=== PATIENT | female | born 1950 | race Caucasian/White ===

== ENCOUNTER 2022-04-29 20:23 | Emergency (ER) | payer MEDICARE, BC ==
[2022-04-29] MEDS ORDERED: MORPHINE SULFATE 4 MG INJ IM ONE (20:36)
[2022-04-29 20:41] VITALS: PULSE 68; O2SAT 96
[2022-04-29] MEDS ORDERED: MORPHINE SULFATE 4 MG INJ ONE (20:42)
--- NOTE | 2022-04-29 21:07 | ERPHSYRPT ---
- History of Present Illness Time Seen by Provider: 04/29/22 20:28 Source: patient Exam Limitations: no limitations Patient Subjective Stated Complaint: pt states "I was walking in the yard and fell in a hole. I heard it pop." Triage Nursing Assessment: pt came into the er via wheelchair; pt is axo x4; c/o ankle injury; pt states 10/10 pain to left ankle; left ankle is swollen, tender; strong left pedal pulse; good cap refill to left lower extremity; vitals wnl Physician History: 71-year-old female with a history of diabetes mellitus presented to the ER with chief complaint of left ankle pain after she accidentally stepped in a's hole in the yard and twisted her ankle prior to arrival. She is unable to bear any weight. Pain is severe sharp shooting with swelling of ankle and hit ear popping sound. No injury anywhere else. Method of Injury: fell, twisted Occurred: just prior to arrival Quality: sharpness Severity of Pain-Max: severe Severity of Pain-Current: severe Lower Extremities Pain: ankle: left Modifying Factors: Improves With: immobilization. Worsens With: movement Associated Symptoms: unable to bear weight Allergies/Adverse Reactions: TAPE Allergy (Uncoded 04/29/22 20:31) Home Medications: ALPRAZolam 0.25 MG [xanAX 0.25 MG] 0.25 mg PO BID 10/24/15 [History] Atenolol/Chlorthalidone [Tenoretic 50 Tablet] 1 tab PO DAILY 10/24/15 [History] Cyclobenzaprine HCl 10 mg [Cyclobenzaprine 10 MG] 10 mg PO TID 10/24/15 [History] Fluoxetine HCl [Prozac] 40 mg PO DAILY 10/24/15 [History] Methocarbamol [Robaxin] 1,000 mg PO QID 10/24/15 [History] ARIPiprazole [Abilify] 2 mg PO DAILY 03/14/17 [History] Hydrocodone/APAP 10/325 mg [Yolyn 10/325 MG Tablet] 1 tab PO Q6H PRN PRN 03/14/17 [History] Insulin Glargine,Hum.rec.anlog [Lantus Solostar] 20 unit SQ DAILY 03/14/17 [History] Insulin Lispro [Humalog Kwikpen U-200] 0 unit SQ .PRN 03/14/17 [History] Triamterene/Hydrochlorothiazid [Triamterene-Hctz 37.5-25 mg Tb] 1 each PO DAILY 03/14/17 [History] Hx Tetanus, Diphtheria Vaccination/Date Given: (UNSURE) Hx Influenza Vaccination/Date Given: Yes Hx Pneumococcal Vaccination/Date Given: Yes Immunizations Up to Date: No Travel Risk - International Travel Have you traveled outside of the country in past 3 weeks: No - Coronavirus Screening Are you exhibiting any of the following symptoms?: No Close contact with a COVID-19 positive Pt in past 14-21 Days: No - Vaccine Status Have you recieved a Covid-19 vaccination: Yes 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 - Vaccination Dates Date of 2cond Vaccination (if applicable): unknown - Review of Systems Constitutional: No Symptoms Ears, Nose, & Throat: No Symptoms Respiratory: No Symptoms Cardiac: No Symptoms Abdominal/Gastrointestinal: No Symptoms Genitourinary Symptoms: No Symptoms Musculoskeletal: Fall, Injury, Joint Redness, Joint Pain, Joint Swelling Skin: No Symptoms Neurological: No Symptoms Psychological: No Symptoms Endocrine: No Symptoms Hematologic/Lymphatic: No Symptoms Immunological/Allergic: No Symptoms - Past Medical History Pertinent Past Medical History: Yes Neurological History: Other ENT History: Glaucoma Cardiac History: Hypertension Respiratory History: No Pertinent History Endocrine Medical History: Diabetes Type II Musculoskeletal History: Degenerative Disk Disease, Osteoarthritis GI Medical History: Other History: No Pertinent History Psycho-Social History: Anxiety, Depression Female Reproductive Disorders: Other Other Medical History: PT. IS TYPE II DIABETIC; HAS HX ANXIETY, AND ABILIFY - Past Surgical History Past Surgical History: Yes Neuro Surgical History: No Pertinent History Cardiac: No Pertinent History Respiratory: No Pertinent History Gastrointestinal: Appendectomy Genitourinary: No Pertinent History Musculoskeletal: Orthopedic Surgery Female Surgical History: Tubal Ligation, Other Other Surgical History: BACK SURGERY, D&C, left foot surgical repair - Social History Smoking Status: Never smoker Exposure to second hand smoke: No Drug Use: none Patient Lives Alone: Yes - Nursing Vital Signs Nursing Vital Signs: Initial Vital Signs Temperature 98.9 F 04/29/22 20:32 Pulse Rate 68 04/29/22 20:32 Respiratory Rate 16 04/29/22 20:32 Blood Pressure 139/71 04/29/22 20:32 O2 Sat by Pulse Oximetry 96 04/29/22 20:32 Pain Scale Pain Intensity 10 - Physical Exam General Appearance: no apparent distress, alert Eyes, Ears, Nose, Throat Exam: normal ENT inspection Neck Exam: normal inspection, full range of motion Cardiovascular/Respiratory Exam: normal breath sounds, regular rate/rhythm Back Exam: normal inspection, normal range of motion Legs Exam: bilateral leg: non-tender, normal inspection, normal range of motion, no evidence of injury Knees Exam: bilateral knee: non-tender, normal inspection, normal range of motion, no evidence of injury Ankle Exam: right ankle: non-tender, normal inspection, normal range of motion, no evidence of injury, left ankle: bone tenderness (Medial and lateral malleolus), limited range of motion, nodules, pain, soft tissue tenderness Foot Exam: right foot: non-tender, normal inspection, normal range of motion, no evidence of injury, left foot: bone tenderness (Minimal anterior foot tenderness), soft tissue tenderness, swelling (Minimal anterior foot swelling) Neuro/Tendon Exam: normal sensation, normal tendon functions Mental Status Exam: alert, oriented x 3, cooperative Skin Exam: normal color SpO2 Interpretation: normal SpO2: 96 O2 Delivery: Room Air Ordered Tests: Active Orders 24 hr Category Date Time Status ANKLE (3 VIEWS) Stat Exams 04/29/22 Ordered Medication Summary Discontinued Medications Generic Name Dose Route Start Last Admin Trade Name Robert PRN Reason Stop Dose Admin Morphine Sulfate 4 mg 04/29/22 20:36 04/29/22 20:43 Morphine Sulfate 4 Mg/Ml Injection IM 04/29/22 20:37 4 mg STAT ONE Administration Morphine Sulfate Confirm 04/29/22 20:42 Morphine Sulfate 4 Mg/Ml Injection Administered 04/29/22 20:43 Dose 4 mg .ROUTE .STK-MED ONE - Progress Progress: pain not gone completely Progress Note: 04/29/22 21:00 She is given morphine for symptomatic relief. X-rays consistent with lateral malleolus fracture with some element of medial malleolus fracture and minimal displacement. X-rays reviewed with Dr. Garcia recommended posterior splinting and patient would be evaluated in office tomorrow morning. Did not recommend reduction at this point. Has intact distal neurovascular. Posterior Ortho- Glass splint was placed on by RN with intact distal neurovascular. Counseled pt/family regarding: diagnosis, need for follow-up, rad results - Departure Departure Disposition: Home Clinical Impression: Ankle fracture, bimalleolar, closed Condition: Stable Critical Care Time: No Referrals: PAIGE CORDERO [Primary Care Provider] - Follow Up with PCP/3 days TRENT BUITRAGO DPM [ACTIVE STAFF] - Follow up/PCP as directed (Tomorrow morning for reevaluation) Instructions: Ankle Fracture (DC) Additional Instructions: Nonweightbearing. Elevation with ice application intermittently. Pain medications as needed. Follow-up with podiatry for reevaluation in the morning Return to ER for any worsening Prescriptions: Hydrocodone/Acetaminophen [Hydrocodone-Acetamin 5-325 mg] 1 tab PO Q6HPRN PRN 3 Days #12 tablet MDD 4 PRN Reason: Pain
[2022-04-29] MEDS ORDERED: NORCO 5/325 MG PO ONE (21:08)
[2022-04-29] MEDS ORDERED: NORCO 5/325 MG ONE (21:15)
[2022-04-29 21:28] VITALS: BP 102/63
--- NOTE | 2022-04-30 09:17 | XRAY ---
Indication: Pain following fall. Comparison: None 3 view left ankle demonstrates mildly displaced lateral malleolus fracture with soft tissue swelling. Talus slightly subluxed laterally. Incidental lower leg vascular calcifications and small plantar heel spur. Remaining ankle unremarkable.
== END 2022-04-29 21:50 | disposition home or self-care (01) ==
LOC: ED 20:23
DX: S82.842A Displaced bimalleolar fracture of left lower leg, initial encounter for closed fracture (principal); W18.42XA Slipping, tripping and stumbling without falling due to stepping into hole or opening, initial encounter; Y93.01 Activity, walking, marching and hiking; Y92.007 Garden or yard of unspecified non-institutional (private) residence as the place of occurrence of the external cause; M25.572 Pain in left ankle and joints of left foot; I10 Essential (primary) hypertension; E11.9 Type 2 diabetes mellitus without complications; Z79.4 Long term (current) use of insulin; Z79.899 Other long term (current) drug therapy; Z79.891 Long term (current) use of opiate analgesic
CPT/HCPCS: 29515; 73610; 96372; 99283; J2270; A9270-GY

== ENCOUNTER 2022-05-03 09:30 | Day surgery (SDC) | payer MEDICARE, BC ==
[~2022-05-03 09:30] MED LIST: Lactated Ringers 1,000 ML IV ONE; Marcaine Mpf 0.5% Vial 30 Ml IJ ONE; XYLOCAINE 1% HCL 20 ML MDV ONE
[2022-05-03] MEDS ORDERED: CEFAZOLIN 2 GM-D5W BAG** 2 GM/50 ML ML IV ONE (09:49)
[2022-05-03] MEDS ORDERED: Lactated Ringers 1,000 ML IV ONE ×3 (09:49→15:36)
[2022-05-03] MEDS ORDERED: CEFAZOLIN 2 GM-D5W BAG** 2 GM/50 ML ML IV SCH (10:00)
[2022-05-03] MEDS ORDERED: Lactated Ringers 1,000 ML IV SCH (10:00)
[2022-05-03 11:02] LABS: ALBUMIN 3.7 g/dL (3.5-5.0); ALKALINE PHOSPHATASE 125 U/L (38-126); ANION GAP 10.9 MEQ/L (5-15); BLOOD UREA NITROGEN 15 mg/dL (7-17); CHLORIDE 101 mmol/L (98-107); Calcium 9.1 mg/dL (8.4-10.2); Carbon Dioxide 30 mmol/L (22-30); Creatinine 1 0.67 mg/dL (0.52-1.04); EST GLOMERULAR FILTRATION RATE > 60.0 ML/MIN; Glucose 286 mg/dL (74-106); Potassium 3.4 mmol/L (3.5-5.1); SGOT/AST 20 U/L (14-36); SGPT/ALT 16 U/L (0-35); SODIUM 139 mmol/L (137-145); Total Protein 7.2 g/dL (6.3-8.2)
[2022-05-03] MEDS ORDERED: HUMULIN R SQ ONE (11:35)
[2022-05-03] MEDS ORDERED: DIPRIVAN 200 MG/20 ML IV ONE (14:01)
[2022-05-03] MEDS ORDERED: Decadron 4 MG INJ ONE ×2 (14:01→15:30)
[2022-05-03] MEDS ORDERED: Quelicin Fliptop 200 MG/10 ML ONE (14:01)
[2022-05-03] MEDS ORDERED: Zofran 4 MG/2 ML VIAL ONE (14:01)
[2022-05-03] MEDS ORDERED: Versed 2 MG/2 ML Injection ONE (14:02)
[2022-05-03] MEDS ORDERED: OFIRMEV 100 ML IV ONE (14:12)
[2022-05-03] MEDS ORDERED: Pre-Attached Lta Kit TP ONE (14:12)
[2022-05-03] MEDS ORDERED: Xylocaine-Mpf 2% 5 Ml Vial ONE (14:13)
[2022-05-03] MEDS ORDERED: SUBLIMAZE 100 MCG/2 ML ONE ×2 (14:13→15:33)
[2022-05-03] MEDS ORDERED: Ephedrine Sulfate 50 MG/ML ONE (14:22)
[2022-05-03] MEDS ORDERED: Naropin 0.5% 30 ML VIAL ONE (14:25)
[2022-05-03] MEDS ORDERED: Zemuron 100 MG/10 ML ONE (14:38)
[2022-05-03] MEDS ORDERED: ATROPINE SULFATE 1MG ONE (14:50)
[2022-05-03] MEDS ORDERED: DEXMEDETOMIDINE 80 MCG/20ML-NS IV ONE (15:00)
[2022-05-03] MEDS ORDERED: BRIDION 200MG/2ML IV ONE (15:28)
--- NOTE | 2022-05-03 15:52 | XRAY ---
Indication: Left ankle ORIF. Intraoperative fluoroscopy provided for 1 minute 33 seconds. 6 digital spot images submitted for interpretation ultimately demonstrates lateral fixation plate/multiple screws fixating lateral malleolus fracture in good apposition/alignment. Visualized ankle mortise appears anatomic. Correlate with intraoperative findings/report.
[2022-05-03 17:03] VITALS: PULSE 60; O2SAT 94
[2022-05-03 17:32] VITALS: BP 111/51
--- NOTE | 2022-05-03 22:23 | XRAY ---
1 minute and 33 seconds fluoroscopy time in surgery for ORIF left ankle.
--- NOTE | 2022-05-06 09:56 | OP ---
SURGERY DATE/TIME: 05/03/2022 1422 PREOPERATIVE DIAGNOSES: 1) Ankle fracture left ankle. 2) Bimalleolar equivalent. 3) Syndesmotic rupture acute. POSTOPERATIVE DIAGNOSES: 1) Ankle fracture left ankle. 2) Bimalleolar equivalent. 3) Syndesmotic rupture acute. PROCEDURE: Open reduction internal fixation of bimalleolar fracture equivalent with syndesmotic reduction. SURGEON: Jose Muniz DPM. LINER REPLACER: None. ANESTHESIA: General plus postoperative regional block. See anesthesia report for details. HEMOSTASIS: Thigh tourniquet set to 350 mm of Mercury for 40 minutes total tourniquet time. ESTIMATED BLOOD LOSS: Less than 5 cc. MATERIALS: 2-0 Vicryl, 3-0 and 2-0 Nylon and Candice anatomical plate with a combination of locking and nonlocking screws. INJECTABLES: See anesthesia report for details. INDICATION FOR SURGERY: Maddie is a very pleasant 71-year-old female who presented to my service after having suffered a fall on Friday of this last week. She indicates that she felt her foot roll inwards and felt a popping immediately after the fall. The patient presented shortly thereafter to the emergency department who instructed her to follow up with our services. The patient did suffer a fracture of the fibula which led to some medial clear space widening indicating that this is a surgical issue. The patient is a diabetic and is relatively under control. However, all risks, complications and benefits of surgical intervention were discussed with the patient secondary to her comorbidities. The patient had nonpalpable pulses likely secondary to swelling. However, vascular studies were obtained demonstrating adequate flow for healing. The risks and complications of the proceeding with surgical intervention still remained. The patient was advised of delayed skin healing, nonwound healing, delayed bone healing, nonbone healing, possibility of infection, hematoma, seroma, possibility of residual pain following the procedure. The supervisor intermediates complication of post-traumatic arthritis as well as possible need for surgical intervention at a later date removing retained hardware. The patient understands all of these risks and wishes to proceed. Plenty of time was allowed for the patient to ask questions and they were answered to the patient's satisfaction. No guarantees were provided as to the outcome. It is with that we decided to proceed. DESCRIPTION OF PROCEDURE AND FINDINGS: The patient is brought into the OR and placed on the OR table in the supine position. At this time a well-padded thigh tourniquet was applied to the patient's left thigh. Adequate general anesthesia was administered until the patient was sedated. At this time the left lower extremity was prepped and draped in the typical sterile fashion. Following this, an Esmarch was utilized and the tourniquet was inflated. At this time, attention was directed to the lateral aspect of the leg where an incision was made with a 15 blade down to the level of the bone. The soft tissue was then reflected off of the fracture site which was immediately identified and copious amounts of sterile saline were utilized to flush the site. A dental pick was utilized to clean out any hematoma or nonviable tissue. Some comminution existed at the anterior aspect of the joint which was removed in saving for use a grafting at the end of the procedure. Following this, a lobster claw reduction clamp was utilized fixate the fracture in an orientation that is anatomical. This was checked under fluoroscopy and an interfragmentary compression screw was placed through the fracture site in AO technique. Following this, an anatomical locking plate was applied to the lateral aspect of the fibula and a combination of locking and nonlocking screws were utilized to neutralize the sheer forces through the fracture site and interfragmentary screw. Following this the syndesmosis stressed and deemed to be incompetent at this time. Two - 3.5 mm fully threaded syndesmotic screws were introduced in order to stabilize the ankle joint. Final shots were taken of the patient in the lateral mortise and AP view deeming to be anatomical. Following this the comminution that was removed was placed back within its deficit. At this time 2-0 Vicryl was utilized to coapt the subcutaneous skin edges. A 3-0 Nylon was utilized to coapt the skin edges in a horizontal mattress-type fashion. A single suture was utilized to relieve the tension off of the suture site and hopefully prevent dehiscence secondary to patient's poor soft tissue quality. Following this the patient was placed in a well-padded posterior splint with a dressing consisting of Betadine, Adaptic, 4x4, Kerlix and a well-padded posterior splint. The patient then was provided a postoperative regional block at the popliteal fossa. The patient was then reversed from anesthesia and returned to the postoperative anesthesia care unit with vital signs stable and vascular status intact. The patient handled the procedure as well as the anesthesia without significant complication. Postoperative orders as indicated in the patient's discharge chart.
== END 2022-05-03 16:30 | disposition home or self-care (01) ==
LOC: SDC 09:30
PROVIDERS: ATTEND Podiatrist Foot & Ankle Surgery
DX: S82.842A Displaced bimalleolar fracture of left lower leg, initial encounter for closed fracture (principal); E11.9 Type 2 diabetes mellitus without complications; I10 Essential (primary) hypertension
CPT/HCPCS: 27814; 27829; 36415; 64450; 73600; 76000; 76942; 80053; 82947; 93005; 99100; J0330; J0461; J0690; J1100; J1815; J2250; J2405; J2704; J2795; J3010

== ENCOUNTER 2022-07-05 08:46 | Day surgery (SDC) | payer BC, MEDICARE ==
[~2022-07-05 08:46] MED LIST changes: -Lactated Ringers 1,000 ML IV ONE; -Marcaine Mpf 0.5% Vial 30 Ml IJ ONE; +Marcaine Mpf 0.5% Vial 30 Ml ONE
[2022-07-05] MEDS ORDERED: CEFAZOLIN 2 GM-D5W BAG** 2 GM/50 ML ML IV SCH (09:30)
[2022-07-05] MEDS ORDERED: Lactated Ringers 1,000 ML IV SCH (09:30)
[2022-07-05] MEDS ORDERED: Lactated Ringers 1,000 ML IV ONE ×2 (09:43→14:14)
[2022-07-05] MEDS ORDERED: CEFAZOLIN 2 GM-D5W BAG** 2 GM/50 ML ML IV ONE (09:47)
[2022-07-05] MEDS ORDERED: HUMALOG IV ONE ×2 (10:12→12:38)
[2022-07-05] MEDS ORDERED: HUMALOG ONE (10:17)
[2022-07-05] MEDS ORDERED: DIPRIVAN 200 MG/20 ML IV ONE (12:29)
[2022-07-05] MEDS ORDERED: Zofran 4 MG/2 ML VIAL ONE (12:29)
[2022-07-05] MEDS ORDERED: Xylocaine-Mpf 2% 5 Ml Vial ONE ×2 (12:29→15:00)
[2022-07-05] MEDS ORDERED: Quelicin Fliptop 200 MG/10 ML ONE (12:29)
[2022-07-05] MEDS ORDERED: SUBLIMAZE 100 MCG/2 ML ONE ×2 (12:32→14:41)
[2022-07-05] MEDS ORDERED: Reglan 10 MG/2 ML IV ONE (12:37)
[2022-07-05] MEDS ORDERED: Pepcid 20 MG VIAL IV ONE (12:37)
[2022-07-05] MEDS ORDERED: Versed 2 MG/2 ML Injection ONE (13:12)
[2022-07-05] MEDS ORDERED: Ephedrine Sulfate 50 MG/ML ONE ×2 (13:20→14:52)
[2022-07-05] MEDS ORDERED: ATROPINE SULFATE 1MG ONE (13:23)
[2022-07-05] MEDS ORDERED: PHENYLEPHRINE HCL ONE (13:24)
[2022-07-05] MEDS ORDERED: Zemuron 100 MG/10 ML ONE (13:28)
[2022-07-05] MEDS ORDERED: OFIRMEV 100 ML IV ONE (13:31)
[2022-07-05] MEDS ORDERED: BRIDION 200MG/2ML IV ONE (13:37)
[2022-07-05] MEDS ORDERED: TORAdol 30 mg Injection ONE (14:54)
[2022-07-05] MEDS ORDERED: DEXMEDETOMIDINE 80 MCG/20ML-NS IV ONE (15:00)
[2022-07-05] MEDS ORDERED: Naropin 0.5% 30 ML VIAL ONE (15:00)
[2022-07-05] MEDS ORDERED: NORCO 5/325 MG PO PRN (16:02)
[2022-07-05] MEDS ORDERED: NORCO 5/325 MG ONE (16:03)
[2022-07-05 16:18] VITALS: BP 147/82; PULSE 68; O2SAT 93
--- NOTE | 2022-07-08 08:12 | OP ---
SURGERY DATE/TIME: 07/05/2022 1308 PREOPERATIVE DIAGNOSES: 1) Left ankle postoperative infection 2) History of bimalleolar fracture equivalent. 3) Left ankle pain. 4) Uncontrolled diabetes mellitus. POSTOPERATIVE DIAGNOSES: 1) Left ankle postoperative infection 2) History of bimalleolar fracture equivalent. 3) Left ankle pain. 4) Uncontrolled diabetes mellitus. PROCEDURE: Repeat incision and drainage with delayed primary closure. SURGEON: Jose Muniz DPM. LEAD PONY RIDER: None. ANESTHESIA: General plus a postoperative popliteal and saphenous block. HEMOSTASIS: Pressure dressing. ESTIMATED BLOOD LOSS: Less than 10 cc. MATERIALS: See anesthesia report for details. INDICATION FOR PROCEDURE: Maddie is a very pleasant 72-year-old female with a long standing history of diabetes mellitus and to some degree history of noncompliance in the postoperative course. The patient indicates that she is a controlled diabetic. However on presentation for today she had her blood sugars in the 400's. At this time, the patient did have an infection to the left ankle at the distal aspect of the incision site from a left ankle open reduction internal fixation approximately 60 days ago. Some of the wound dehisced after the fact due to the patient's swelling and a small opening occurred at the distal aspect of the incision site. At this time an infection was present and initial incision and drainage was performed in clinic under local anesthetic in order to eradicate the infection and preventing it from getting worse. The patient was made aware of pain as a result of the infection on Friday which was Labor Day. On Friday, she gave us a call and let us know that there was immense amount of pain and some drainage coming out of the ankle. The patient was unable to come in until Friday. However once she was assessed a significant amount of purulent fluid was evacuated from the site. The decision was made to proceed with incision and drainage at chair side which was performed and cultures were taken. The patient was not on antibiotics at that time however cultures came back negative. Today, she presents with continued redness and swelling. However pain has reduced to some degree. For that reason we have decided to proceed with an additional incision and drainage to repeat the procedure and if all tissue appears to be viable at this time we are planning to proceed with a delayed complex closure. The patient understands all risks, benefits and complications of the procedure. At this time she is staged being that she has already had the first portion of the incision and drainage eradicating a majority of the infection. At this time she knows that the goal will be to close the wound and allow for this to heal under minimal tension and infection free. The patient was made aware of the complications of not proceeding with this procedure as well as possibility whether or not we proceed with the procedure which includes but not limited to delayed skin healing, nonskin healing, possible residual infection, need for repeat intervention and possible bone infection as a result of not addressing. At this time the patient was made aware that given the fact that this is acute and the fact that she is a diabetic being aggressive with addressing this issue is of the utmost importance to prevent the infection from lingering and potentially turning into bone infection later on. She understands that risk and would like to proceed in order to eliminate that possibility from occurring. At this time we proceed with intervention. DESCRIPTION OF PROCEDURE AND FINDINGS: The patient was brought into the OR and placed on the OR table in the supine position. At this time adequate general anesthesia was administered until the patient was sedated. The patient's left lower extremity was prepped and draped in the typical sterile fashion and lowered onto the surgical field. At this time the stitches were removed and the incision was opened back up. Assessing the wound for any residual infection, a minimal amount of purulence was found at the posterior aspect of the fibula which was flushed with 3 liters of sterile saline. Incision was further down the lateral aspect of the leg to the level of the peroneal tendon sheath which were identified to be free of infection. Any residual necrotic or nonviable tissue was removed from the surgical site at this time. Largely the wound appeared to be free of any infection. At this time Pulsavac was utilized in order to irrigate the entirety of the site. All dirty materials were removed from the surgical site and changed out for clean ones. At this time sutures were performed utilizing 3-0 Nylon and suture guard with 2-0 Nylon to keep tension off of the healing surgical site. Two suture guards were utilized. A dressing consisting of Betadine, Adaptic, 4x4, Kerlix and JOSEPH was applied to the left ankle. At this time the patient was reversed from anesthesia and returned to the postoperative anesthesia care unit where the patient underwent a popliteal block. The patient handled the anesthesia as well as the procedure without significant complication. Postoperative orders as indicated in the patient's discharge chart.
== END 2022-07-05 16:40 | disposition home or self-care (01) ==
LOC: SDC 08:46
PROVIDERS: ATTEND Podiatrist Foot & Ankle Surgery
DX: T81.41XA Infection following a procedure, superficial incisional surgical site, initial encounter (principal); Z87.81 Personal history of (healed) traumatic fracture; M25.572 Pain in left ankle and joints of left foot; E11.65 Type 2 diabetes mellitus with hyperglycemia
CPT/HCPCS: 10180; 64450; 76937; 76942; 82947; 87070; 87075; 96374; 96375; 96376; 99100; J0330; J0461; J0690; J1817; J1885; J2250; J2370; J2405; J2704; J2795; J3010; A9270-GY